=== PATIENT | female | born 1985 | race Caucasian/White ===

== ENCOUNTER 2018-07-21 15:30 | Inpatient (IN) | payer OTHER ==
[~2018-07-21] VITALS: Ht 160 cm; Wt 75.7 kg
[2018-08-15] MEDS ORDERED: PRENATAL TABLE1 EAC1 PO (19:05)
[2018-08-15] MEDS ORDERED: IRON18 MG PO (19:06)
== END 2018-08-18 13:23 | DRG 768 ==
LOC: LDR 08-13 15:30 → SURG-SUITE 08-16 13:14
PROVIDERS: Obstetrics & Gynecology Maternal & Fetal Medicine
PROC: 4A1HXCZ Monitoring of Products of Conception, Cardiac Rate, External Approach (ICD-10-PCS; 2018-08-15)
PROC: 0DQP0ZZ Repair Rectum, Open Approach (ICD-10-PCS; 2018-08-16)
PROC: 3E033VJ Introduction of Other Hormone into Peripheral Vein, Percutaneous Approach (ICD-10-PCS; 2018-08-16)
PROC: 10E0XZZ Delivery of Products of Conception, External Approach (ICD-10-PCS; principal; 2018-08-16 12:30)
DX: O70.3 Fourth degree perineal laceration during delivery (principal); Z37.0 Single live birth; Z3A.40 40 weeks gestation of pregnancy; Z22.330 Carrier of Group B streptococcus

== ENCOUNTER 2018-08-07 11:28 | Outpatient (CLI) | payer OTHER | END 2018-08-07 12:15 | disposition home or self-care (01) | LOC: NST 11:28 | DX: Z34.03 Encounter for supervision of normal first pregnancy, third trimester (principal) ==

== ENCOUNTER → 2018-08-11 | Outpatient (CLI) | payer OTHER ==
[~2018-08-11] MED LIST: IRON18 MG PO; PRENATAL TABLE1 EAC1 PO
== END | disposition home or self-care (01) ==
LOC: NST 14:46
DX: Z34.03 Encounter for supervision of normal first pregnancy, third trimester (principal)